=== PATIENT | female | born 1950 | race Caucasian/White ===

== ENCOUNTER 2016-10-05 21:11 | Emergency (ER) | payer MEDICARE, BC ==
[~2016-10-05 21:11] MED LIST: ASAB PO; ATV.5 PO; ATV1 PO; B12 PO; BUDEPRION150 MG PO; BUM5 PO; C5 PO; COUMADIN3 MG PO; COZ25 PO; CYMBALTA30 PO; CYMBALTA60 PO; ESTRACE0.5 MG PO; ESTRADIOL0.025 MG TD; FERROUS SULF325 M1 PO; FLEX PO; KLOR-CON 1010 MEQ PO; LEVOTHYROXIN25 MCG PO; LEVOTHYROXIN75 MCG PO; LIOR10 PO; LORTAB10 PO; MAXZIDE PO; NEUR100 PO; NEUR600 PO; NEXIUM40 PO; NORCO1 TA2 PO; PRILOSEC40 MG PO; SEROQUEL1C PO; SEROQUEL300 MG PO; SYN.025B PO; TOPAMAX100 PO; VOLTAREN1 % T; WELLSR150 PO; WELLXL300 PO; ZANAFLEX 4 MG TA4 MG PO; ZOCOR20 PO
[2016-10-05 22:02] LABS: BASOPHILS 0.3 %; BASOPHILS ABSOLUTE 0.03 10/3/uL (0.0-0.16); EOSINOPHILS 2.7 %; EOSINOPHILS ABSOLUTE 0.25 10/3/uL (0.0-0.53); ER CBC TAT 0 Hrs 08 Mins; HEMATOCRIT 44.7 % (36.0-48.0); HEMOGLOBIN 14.9 g/dL (12.0-16.0); IMMATURE GRANULOCYTES 0.1 %; IMMATURE GRANULOCYTES ABSOLUTE 0.01 10/3/uL (0.0-0.11); LYMPHOCYTES 11.8 %; LYMPHOCYTES ABSOLUTE 1.09 10/3/uL (0.67-4.30); MANUAL DIFF NO %; MEAN CORPUS HGB CONC 33.3 g/dL (32.0-36.0); MEAN CORPUSCULAR VOLUME 90.1 fL (80-100); MEAN PLATELET VOLUME 10.4 fL (9.2-13.0); MONOCYTES 3.7 %; MONOCYTES ABSOLUTE 0.34 10/3/uL (0.21-1.20); NEUTROPHILS 81.4 %; NEUTROPHILS ABSOLUTE 7.52 10/3/uL (2.02-8.40); PLATELET COUNT 254 10/3/uL (150-400); RBC DISTRIBUTION WIDTH 14.4 % (12.0-16.0); RED CELL COUNT 4.96 10/6/uL (4.0-5.6); WHITE BLOOD CELLS 9.2 10/3/uL (4.5-10.5)
[2016-10-05 22:11] LABS: PROTIME (NOT ORD) 13.3 SEC (12.0-14.5)
[2016-10-05 22:16] LABS: A/G RATIO 0.7 (0.7-1.9); ALBUMIN 3.2 G/DL (3.5-5.0); ALKALINE PHOSPHATASE 176 U/L (45-117); BUN (BLOOD UREA NITROGEN) 12 MG/DL (6-23); CALCIUM, SERUM 9.1 MG/DL (8.5-10.4); CHLORIDE, SERUM 108 MMOL/L (96-112); CO2 (CARBON DIOXIDE) 24 MMOL/L (24-34); CREATININE 1.19 MG/DL (0.55-1.02); GFR AFRICAN AMERICAN 55 ML/MIN (>=60); GFR NON AFRICAN AMERICAN 47 ML/MIN (>=60); POTASSIUM, SERUM 3.6 MMOL/L (3.5-5.3); SGOT(AST) 13 U/L (5-40); SGPT(ALT) 20 U/L (5-65); SODIUM, SERUM 143 MMOL/L (135-148); TOTAL BILIRUBIN 0.4 MG/DL (0-1.2)
[2016-10-05 22:17] LABS: GLOBULIN 4.8 G/DL (2.5-4.1); GLUCOSE, SERUM 141 MG/DL (60-99)
== END 2016-10-06 | disposition home or self-care (01) ==
LOC: ER 21:11
PROVIDERS: Emergency Medicine
DX: S80.01XA Contusion of right knee, initial encounter (principal); S80.02XA Contusion of left knee, initial encounter; M79.602 Pain in left arm; I10 Essential (primary) hypertension; F31.9 Bipolar disorder, unspecified; Z85.3 Personal history of malignant neoplasm of breast; G62.9 Polyneuropathy, unspecified; Z88.5 Allergy status to narcotic agent; Z88.1 Allergy status to other antibiotic agents; Z88.8 Allergy status to other drugs, medicaments and biological substances; Z79.899 Other long term (current) drug therapy
CPT/HCPCS: 80053; 85025; 85610; 93971; 99284; J2930